=== PATIENT | female | born 1950 | race Caucasian/White ===

== ENCOUNTER 2017-03-11 07:03 | Inpatient (IN) | payer MEDICARE ==
[2017-03-09 17:32] LABS: BASOPHILS 0.1 %; BASOPHILS ABSOLUTE 0.01 10/3/uL (0.0-0.16); EOSINOPHILS 0.5 %; EOSINOPHILS ABSOLUTE 0.04 10/3/uL (0.0-0.53); HEMOGLOBIN 11.4 g/dL (12.0-16.0); IMMATURE GRANULOCYTES 0.2 %; IMMATURE GRANULOCYTES ABSOLUTE 0.02 10/3/uL (0.0-0.11); LYMPHOCYTES 11.3 %; LYMPHOCYTES ABSOLUTE 0.97 10/3/uL (0.67-4.30); MEAN CORPUS HGB CONC 33.5 g/dL (32.0-36.0); MEAN CORPUSCULAR HEMOGLOB 30.2 pg (26.0-34.0); MEAN CORPUSCULAR VOLUME 90.2 fL (80-100); MONOCYTES 6.6 %; MONOCYTES ABSOLUTE 0.57 10/3/uL (0.21-1.20); NEUTROPHILS 81.3 %; NEUTROPHILS ABSOLUTE 6.98 10/3/uL (2.02-8.40); PLATELET COUNT 195 10/3/uL (150-400); RBC DISTRIBUTION WIDTH 13.8 % (12.0-16.0); RED CELL COUNT 3.77 10/6/uL (4.0-5.6); WHITE BLOOD CELLS 8.6 10/3/uL (4.5-10.5)
[2017-03-09 17:33] LABS: MANUAL DIFF NO %
[2017-03-09 17:38] LABS: INTERNATIONAL NORMAL RATI 1.2 UNITS (-); PARTIAL THROMBO TIME 26.1 SEC (22.5-37.2); PROTIME (NOT ORD) 14.6 SEC (12.0-14.5)
[2017-03-09 17:48] LABS: ALBUMIN 3.6 G/DL (3.5-5.0); ALKALINE PHOSPHATASE 65 U/L (45-117); BUN (BLOOD UREA NITROGEN) 14 MG/DL (6-23); CALCIUM, SERUM 8.5 MG/DL (8.5-10.4); CHLORIDE, SERUM 104 MMOL/L (96-112); CO2 (CARBON DIOXIDE) 27 MMOL/L (24-34); CREATININE 0.64 MG/DL (0.55-1.02); GFR AFRICAN AMERICAN 107 ML/MIN (>=60); GFR NON AFRICAN AMERICAN 92 ML/MIN (>=60); GLOBULIN 3.5 G/DL (2.5-4.1); GLUCOSE, SERUM 146 MG/DL (60-99); SGOT(AST) 17 U/L (5-40); SGPT(ALT) 25 U/L (5-65); SODIUM, SERUM 137 MMOL/L (135-148); TOTAL PROTEIN 7.1 G/DL (6.0-8.5)
[2017-03-09 18:17] LABS: ASCORBIC ACID (UR NOT ORDER) NEG (NEG); BILIRUBIN, URINE SMALL (NEG); KETONE, URINE NEGATIVE (NEG); LEUKOCYTE ESTERASE(NOT OR MOD (NEG); WBC (NOT ORDERED) (RFLEX) 15 (0-5)
--- NOTE | ~2017-03-11 | OP ---
Record Of Operation [facility] [address] [place]. [address] NAME: RIKKI PATRICK : 48 STATUS : ADM IN PAT#: [id number] AGE: 66 ADM/REG DATE : 03/11/17 MR#: [id number] REPORT SERV DATE: 03/11/17 DICTATED BY: CORBIN DIAMOND DATE: 03/11/17 REPORT STATUS : Draft TRANSCRIBED BY: MODL DATE: 03/11/17 DATE OF PROCEDURE: 03/11/2017 PREOPERATIVE DIAGNOSIS: Right four-part head splitting proximal humerus fracture. POSTOPERATIVE DIAGNOSIS: Right four-part head splitting proximal humerus fracture. PROCEDURE: Right hemiarthroplasty for fracture, tuberosity repair, biceps tenodesis. COMPLICATIONS: None. ANESTHESIA: General endotracheal with regional block per Anesthesia. INDICATIONS: A 66-year-old female, sustained the above-mentioned fracture. We discussed ORIF versus stefano versus reverse and all the different options given her age, activity level, and fracture pattern. She wished to proceed with operative intervention after discussion of above. PROCEDURE IN DETAIL: The patient was induced in the supine position. She has taken to the beach-chair position with care to maintain the cervical lordosis. A time-out protocol was enforced. Ancef was administered. Deltopectoral approach was utilized. The cephalic vein was taken. There was copious hemorrhagic change in the deltopectoral muscles. We took the cephalic vein laterally and lysed the hemorrhagic bursitis in the subdeltoid plane. We placed a radiolucent Story retractor and released the pectoralis 1 cm from its insertion while marking its anatomic insertion. We tagged the tuberosities with FiberWires and gently entered the fracture site. We debrided some of the hematoma. We provisionally reduced the fracture and assessed it fluoroscopically. It was evident that there was a large head split fluoroscopically. I went ahead and used a straight osteotome to take down the shield fragment through the tuberosity, the intact tuberosity. We then released the capsule and externally rotated. We placed a Fukuda retractor. The head was inferiorly displaced and severely macerated. It was clear that this was not going to be fixable. We removed the head, which was completely devascularized and trimmed the tuberosity down to a reasonable size. We then reamed. We decided on the stefano at this phase. There was some comminuted bone we saved at the metaphyseal-diaphyseal junction. We reamed distally by hand up to a 10. We selected a 10. We did several provisional reductions with a 44 head on the 'A' setting and this was satisfactory in 30 degrees of retroversion. We selected a 3 cm. We marked and measured from the pectoralis insertion, 54 mm on the head trial. We then utilized the fracture stem support feature of the Bi[employer] System and placed that to allow optimal head height. We cemented that with regular cement mostly proximal. This was then impacted into position. We reduced the shoulder and then assessed the fracture fragments. We placed a cerclage stitch around the greater tuberosity and then tied multiple FiberWires repairing the tuberosities to themselves and two FiberWires through the shaft, and we were able to get near anatomic reduction of all the fracture fragments of the proximal humerus. We irrigated with pulsatile lavage and tranexamic acid. The wound was closed in layers. [facility] soft Record Of Operation [address] [address] NAME: RIKKI PATRICK : 48 STATUS : ADM IN PAT#: [id number] AGE: 66 ADM/REG DATE : 03/11/17 MR#: [id number] REPORT SERV DATE: 03/11/17 DICTATED BY: CORBIN DIAMOND. DATE: 03/11/17 REPORT STATUS : Draft TRANSCRIBED BY: MODL DATE: 03/11/17 tissue tenodesed to the pectoralis, which was repaired as well. The wound was closed in layers. The patient tolerated the procedure well and was taken to PACU in stable condition. POSTOPERATIVE PLAN: Elbow range of motion, pendulums only for four weeks, and then begin 0 to 90 passive motion progressing to active in six weeks. BSS/MODL oCrbin Diamond M.D. / [id number] CC: Corbin Diamond M.D.
[~2017-03-11 07:03] MED LIST: COREG25 PO; NORCO1 TA1 PO
[2017-03-12 04:34] LABS: BUN (BLOOD UREA NITROGEN) 11 MG/DL (6-23); CALCIUM, SERUM 8.6 MG/DL (8.5-10.4); CHLORIDE, SERUM 108 MMOL/L (96-112); CO2 (CARBON DIOXIDE) 28 MMOL/L (24-34); CREATININE 0.67 MG/DL (0.55-1.02); GFR AFRICAN AMERICAN 105 ML/MIN (>=60); GFR NON AFRICAN AMERICAN 91 ML/MIN (>=60); GLUCOSE, SERUM 142 MG/DL (60-99); SODIUM, SERUM 142 MMOL/L (135-148)
[2017-03-12] MEDS ORDERED: ASA5GR PO (10:57)
[2017-03-12] MEDS ORDERED: PERCOCET 7.5/321 TAB PO (10:57)
[2017-03-12] MEDS ORDERED: ZOFRAN4 PO (10:58)
[2017-03-12] MEDS ORDERED: PR25 PO (10:58)
== END 2017-03-12 16:42 | disposition home or self-care (01) | DRG 483 ==
LOC: SDC/OF 07:03 → PACU 12:13 → 3SO 13:05
PROVIDERS: Orthopaedic Surgery Sports Medicine
PROC: 0LS30ZZ Reposition Right Upper Arm Tendon, Open Approach (ICD-10-PCS; 2017-03-11)
PROC: 0RRJ0J6 Replacement of Right Shoulder Joint with Synthetic Substitute, Humeral Surface, Open Approach (ICD-10-PCS; principal; 2017-03-11 08:30)
DX: S42.201A Unspecified fracture of upper end of right humerus, initial encounter for closed fracture (principal)
CPT/HCPCS: 36415; 73030-RT; 76001; 80048; 80053; 81001; 85025; 85610; 85730; 86850; 86900; 86901; 87086; 87641; 88305; 88311; 93005; 97110-GP; 97116-GP; 97161-GP; A9270-GY; C1776; G8978-CK-GP; G8979-CJ-GP; J0690; J2250; J2270; J2370; J2405; J2550; J2710; J2795; J3010